=== PATIENT | female | born 2000 | race Caucasian/White ===

== ENCOUNTER 2019-01-22 18:29 | Inpatient (IN) | payer OTHER ==
[~2019-01-22] VITALS: Ht 157.5 cm; Wt 158.0 kg
[2019-01-22] MEDS ORDERED: PRENATABS RX T1 EACH PO (18:47)
[2019-01-22] MEDS ORDERED: FOLIC ACID1 MG PO (18:48)
== END 2019-01-23 10:12 | disposition home or self-care (01) | DRG 833 ==
LOC: LDR 18:29
PROVIDERS: ADMIT Specialist
PROC: 4A1HXCZ Monitoring of Products of Conception, Cardiac Rate, External Approach (ICD-10-PCS; principal; 2019-01-22)
PROC: BU46ZZZ Ultrasonography of Uterus (ICD-10-PCS; 2019-01-22)
DX: O47.02 False labor before 37 completed weeks of gestation, second trimester (principal); Z34.82 Encounter for supervision of other normal pregnancy, second trimester

== ENCOUNTER → 2019-01-22 | Emergency (ER) | payer OTHER ==
[~2019-01-22] VITALS: Ht 157.5 cm; Wt 71.7 kg
[~2019-01-22] MED LIST: FOLIC ACID1 MG PO; PRENATABS RX T1 EACH PO
== END | disposition still patient (30) ==
LOC: ER 12:24
DX: O47.02 False labor before 37 completed weeks of gestation, second trimester (principal); Z34.82 Encounter for supervision of other normal pregnancy, second trimester

== ENCOUNTER 2019-03-04 22:40 | Outpatient (CLI) | payer OTHER | END 2019-03-05 13:00 | disposition home or self-care (01) | LOC: OBS/DEL 22:40 | DX: O26.893 Other specified pregnancy related conditions, third trimester (principal); M54.5 Low back pain; Z34.83 Encounter for supervision of other normal pregnancy, third trimester ==

== ENCOUNTER 2019-12-14 20:36 | Emergency (ER) | payer OTHER ==
[~2019-12-14] VITALS: Ht 165.1 cm; Wt 72.6 kg
== END 2019-12-14 22:56 | disposition home or self-care (01) ==
LOC: ER 20:36
DX: N93.8 Other specified abnormal uterine and vaginal bleeding (principal)

== ENCOUNTER 2020-09-10 14:27 | Inpatient (IN) | payer OTHER ==
[~2020-09-10] VITALS: Ht 154.9 cm; Wt 80.3 kg
[2020-09-19] MEDS ORDERED: PRENATAL TABLE1 EAC1 PO (00:26)
== END 2020-09-21 12:40 | disposition home or self-care (01) | DRG 807 ==
LOC: LDR 09-18 23:14 → OB/GYN 09-19 11:35 → LDR 09-22 15:15
PROVIDERS: ADMIT Specialist; ATTEND Specialist
PROC: 4A1HXCZ Monitoring of Products of Conception, Cardiac Rate, External Approach (ICD-10-PCS; 2020-09-18)
PROC: 10E0XZZ Delivery of Products of Conception, External Approach (ICD-10-PCS; principal; 2020-09-19)
DX: O80 Encounter for full-term uncomplicated delivery (principal); Z37.0 Single live birth; Z3A.39 39 weeks gestation of pregnancy; Z22.330 Carrier of Group B streptococcus